=== PATIENT | male | born 1985 | race Caucasian/White ===

== ENCOUNTER 2019-11-03 02:04 | Emergency (ER) | payer OTHER ==
[~2019-11-03] VITALS: Ht 175.3 cm; Wt 102.3 kg
[2019-11-03] MEDS ORDERED: FAMO20TA PO (02:09)
[2019-11-03] MEDS ORDERED: GI COCKTAIL 50ML BTL(HYOSCYAMINE/MAALOX/LIDOCAINE VISCOUS)(1:3:1) As Ordered ONE (03:06)
[2019-11-03] MEDS ORDERED: GI COCKTAIL 50ML BTL(HYOSCYAMINE/MAALOX/LIDOCAINE VISCOUS)(1:3:1) PO ONE (03:15)
[2019-11-03 03:24] LABS: BASO # 0.1 10^3/uL (0.0-0.2); BASO % 0.6 % (0.0-1.0); EOS # 0.1 10^3/uL (0.0-0.5); EOS % 0.6 % (0.0-3.0); HEMATOCRIT 45.5 % (42.0-52.0); HEMOGLOBIN 13.7 g/dl (13.5-17.5); LYMPH # 2.5 10^3/uL (1.5-5.0); LYMPH % 19.7 % (24.0-44.0); MEAN CORPUSCULAR HEMOGLOBIN 20.4 pg (27.0-33.0); MEAN CORPUSCULAR HGB CONC 30.1 g/dl (32.0-36.5); MEAN CORPUSCULAR VOLUME 67.7 fl (80.0-96.0); MONO # 0.4 10^3/uL (0.0-0.8); MONO % 3.3 % (0.0-5.0); NEUTROPHILS # 9.3 10^3/uL (1.5-8.5); NEUTROPHILS % 74.1 % (36.0-66.0); PLATELET COUNT, AUTOMATED 330 10^3/uL (150-450); RED BLOOD COUNT 6.72 10^6/uL (4.30-6.10); WHITE BLOOD COUNT 12.5 10^3/uL (4.0-10.0)
[2019-11-03 03:41] LABS: ALBUMIN 4.1 GM/DL (3.2-5.2); ALT/SGPT 83 U/L (12-78); BILIRUBIN,DIRECT 0.1 MG/DL (0.0-0.2); BILIRUBIN,TOTAL 0.3 MG/DL (0.2-1.0); BLOOD UREA NITROGEN 13 MG/DL (7-18); CALCIUM LEVEL 9.4 MG/DL (8.5-10.1); CARBON DIOXIDE LEVEL 28 MEQ/L (21-32); CHLORIDE LEVEL 106 MEQ/L (98-107); CREATININE FOR GFR 1.04 MG/DL (0.70-1.30); GLOMERULAR FILTRATION RATE > 60.0 (>60); GLUCOSE, FASTING 142 MG/DL (70-100); LIPASE 71 U/L (73-393); POTASSIUM SERUM 4.1 MEQ/L (3.5-5.1); SODIUM LEVEL 139 MEQ/L (136-145); TOTAL PROTEIN 8.2 GM/DL (6.4-8.2)
--- NOTE | 2019-11-03 04:12 | REPVR ---
PROCEDURE INFORMATION: Exam: XR Chest, 1 View Exam date and time: 11/03/2019 3:49 AM Age: 34 years old Clinical indication: Chest pain; Type not specified TECHNIQUE: Imaging protocol: XR of the chest Views: 1 view. COMPARISON: No relevant prior studies available. FINDINGS: Lungs: Unremarkable. No consolidation. Pleural space: Unremarkable. No pleural effusion. No pneumothorax. Heart/Mediastinum: Unremarkable. No cardiomegaly. Bones/joints: Unremarkable. IMPRESSION: No acute findings. Electronically signed by: Hood Mendez On 11/03/2019 04:11:50 AM
[2019-11-03] MEDS ORDERED: KETOROLAC 30 MG/ML 1ML VIAL IV ONE (04:15)
[2019-11-03] MEDS ORDERED: ISOVUE-370 76% 100ML VIAL As Ordered ONE (05:40)
--- NOTE | 2019-11-03 06:25 | REPVR ---
PROCEDURE INFORMATION: Exam: CT Angiography Chest With Contrast Exam date and time: 11/03/2019 6:01 AM Age: 34 years old Clinical indication: Chest pain; Additional info: Abdominal and chest pain TECHNIQUE: Imaging protocol: Computed tomographic angiography of the chest with intravenous contrast. 3D rendering (Not supervised by radiologist): MIP and/or 3D reconstructed images were created by the technologist. Radiation optimization: All CT scans at this facility use at least one of these dose optimization techniques: automated exposure control; mA and/or kV adjustment per patient size (includes targeted exams where dose is matched to clinical indication); or iterative reconstruction. Contrast material: ISO 370; Contrast volume: 100 ml; Contrast route: INTRAVENOUS (IV); COMPARISON: CR PORTABLE CHEST X-RAY 11/03/2019 3:40 AM FINDINGS: Limitations: Examination is limited by motion artifact. Pulmonary arteries: No definite pulmonary embolism. Evaluation of the segmental pulmonary arteries are limited because of motion. Aorta: Unremarkable. No aortic aneurysm. No aortic dissection. Veins: Right SVC is patent. Incidental persistent left SVC. Tracheobronchial tree: Visualized airway is unremarkable. Lungs: Unremarkable. No consolidation. No masses. Pleural space: Unremarkable. No pneumothorax. No pleural effusion. Heart: Unremarkable. No cardiomegaly. No pericardial effusion. Lymph nodes: Unremarkable. No enlarged lymph nodes. Bones/joints: Unremarkable. No acute fracture. Soft tissues: Unremarkable. IMPRESSION: 1. No definite pulmonary embolism. 2. Evaluation of the segmental pulmonary arteries are limited because of motion. 3. See also CT abdomen pelvis report. Electronically signed by: Peri Carrington On 11/03/2019 06:25:21 AM
--- NOTE | 2019-11-03 06:25 | REPVR ---
PROCEDURE INFORMATION: Exam: CT Abdomen And Pelvis With Contrast Exam date and time: 11/03/2019 6:01 AM Age: 34 years old Clinical indication: Abdominal pain; Prior surgery; Additional info: Abdominal and chest pain TECHNIQUE: Imaging protocol: Computed tomography of the abdomen and pelvis with intravenous contrast. Radiation optimization: All CT scans at this facility use at least one of these dose optimization techniques: automated exposure control; mA and/or kV adjustment per patient size (includes targeted exams where dose is matched to clinical indication); or iterative reconstruction. Contrast material: ISO 370; Contrast volume: 100 ml; Contrast route: INTRAVENOUS (IV); COMPARISON: No relevant prior studies available. FINDINGS: Liver: Normal. No mass. Gallbladder and bile ducts: 1.5 cm gallstone in the gallbladder. Mild pericholecystic edema. Gallbladder is distended. No biliary ductal dilatation. Pancreas: Normal. No ductal dilation. Spleen: Normal. No splenomegaly. Adrenals: Normal. No mass. Kidneys and ureters: Normal. No hydronephrosis. Stomach and bowel: No abnormal bowel dilatation. No abnormal bowel wall thickening. Negative for colonic diverticulitis. Appendix: Appendix is normal. Intraperitoneal space: Unremarkable. No free air. No significant fluid collection. Vasculature: Unremarkable. No abdominal aortic aneurysm. Lymph nodes: Unremarkable. No enlarged lymph nodes. Bladder: Unremarkable as visualized. Reproductive: Prostate is normal in size. Bones/joints: Unremarkable. No acute fracture. Soft tissues: Unremarkable. IMPRESSION: Cholelithiasis. Suspicious for acute cholecystitis. Electronically signed by: Peri Carrington On 11/03/2019 06:24:54 AM
--- NOTE | 2019-11-03 06:51 | REPVR ---
PROCEDURE INFORMATION: Exam: US Abdomen, Limited; Right Upper Quadrant Exam date and time: 11/03/2019 6:41 AM Age: 34 years old Clinical indication: Abdominal pain; Acute; Additional info: Abdominal pain/ gallstone TECHNIQUE: Imaging protocol: US abdomen. Real time ultrasound with image documentation. Limited exam focused on the right upper quadrant. COMPARISON: CT ABD/PEL W/IV CONTRAST ONLY 11/03/2019 5:46 AM FINDINGS: Liver: Normal. No masses. Gallbladder: Diffuse gallbladder wall thickening. Gallbladder wall measures 4 mm in thickness. Stone in the gallbladder neck measuring 1.8 cm. Ring down artifact from the anterior wall of the gallbladder consistent with adenomyomatosis. Common bile duct: CBD measures 4 mm in diameter. Pancreas: Visualized pancreas is unremarkable. Right kidney: Right kidney measures 11.1 cm in length. No right hydronephrosis. Normal echogenicity. IMPRESSION: 1. Cholelithiasis and gallbladder wall thickening. Findings consistent with acute cholecystitis. 2. Ring down artifact from the anterior wall of the gallbladder consistent with adenomyomatosis. Electronically signed by: Peri Carrington On 11/03/2019 06:51:26 AM
[2019-11-03] MEDS ORDERED: ONDA4TAB6 PO (07:15)
[2019-11-03] MEDS ORDERED: AUGM875T28 PO (07:15)
[2019-11-03] MEDS ORDERED: KETO10TAB PO (07:15)
[2019-11-03] MEDS ORDERED: AUGMENTIN 875 MG TAB PO ONE (07:30)
[2019-11-03 07:32] VITALS: BP 113/83
--- NOTE | 2019-11-13 14:26 | ECGEPIP ---
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 BRUGADA SYNDROME CLINICAL CORRELATE SEE SCANNED DOWNTIME REPORT.
--- NOTE | 2019-11-13 14:27 | ECGEPIP ---
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 BRUGADA SYNDROME CLINICAL CORRELATE SEE SCANNED DOWNTIME REPORT
== END 2019-11-03 07:34 | disposition home or self-care (01) ==
LOC: M ED 02:04
DX: K81.9 Cholecystitis, unspecified (principal); Z79.899 Other long term (current) drug therapy
CPT/HCPCS: 71045; 71275; 74177; 76705; 80048; 80076; 81001; 83690; 85025; 93005; 93041; 94760; 96374; 99284; J1885; Q9967

== ENCOUNTER 2020-01-12 04:40 | Emergency (ER) | payer OTHER ==
[~2020-01-12] VITALS: Ht 175.3 cm; Wt 106.1 kg
[~2020-01-12 04:40] MED LIST: AUGM875T28 PO; FAMO20TA PO; KETO10TAB PO; ONDA4TAB6 PO
[2020-01-12] MEDS ORDERED: GI COCKTAIL 50ML BTL(HYOSCYAMINE/MAALOX/LIDOCAINE VISCOUS)(1:3:1) PO ONE (05:30)
--- NOTE | 2020-01-12 05:41 | REPVR ---
PROCEDURE INFORMATION: Exam: XR Chest, 1 View Exam date and time: 01/12/2020 5:16 AM Age: 34 years old Clinical indication: Chest pain; Type not specified TECHNIQUE: Imaging protocol: XR of the chest Views: 1 view. COMPARISON: CR PORTABLE CHEST X-RAY 2019-11-03 03:40 FINDINGS: Lungs: Unremarkable. No consolidation. Pleural space: Unremarkable. No pleural effusion. No pneumothorax. Heart/Mediastinum: Unremarkable. No cardiomegaly. Bones/joints: Unremarkable. IMPRESSION: No acute findings. Electronically signed by: Jared Suarez On 01/12/2020 05:41:43 AM
[2020-01-12 05:49] LABS: BASO # 0.1 10^3/uL (0.0-0.2); BASO % 0.7 % (0.0-1.0); EOS % 0.2 % (0.0-3.0); HEMATOCRIT 47.6 % (42.0-52.0); LYMPH # 1.4 10^3/uL (1.5-5.0); LYMPH % 11.4 % (24.0-44.0); MEAN CORPUSCULAR HEMOGLOBIN 20.1 pg (27.0-33.0); MEAN CORPUSCULAR HGB CONC 29.4 g/dl (32.0-36.5); MEAN CORPUSCULAR VOLUME 68.4 fl (80.0-96.0); MONO # 0.4 10^3/uL (0.0-0.8); MONO % 3.1 % (0.0-5.0); NEUTROPHILS # 10.3 10^3/uL (1.5-8.5); NEUTROPHILS % 83.9 % (36.0-66.0); PLATELET COUNT, AUTOMATED 319 10^3/uL (150-450); RED BLOOD COUNT 6.96 10^6/uL (4.30-6.10); WHITE BLOOD COUNT 12.3 10^3/uL (4.0-10.0)
[2020-01-12 06:13] LABS: BLOOD UREA NITROGEN 18 MG/DL (7-18); CALCIUM LEVEL 9.3 MG/DL (8.5-10.1); CARBON DIOXIDE LEVEL 27 MEQ/L (21-32); CHLORIDE LEVEL 106 MEQ/L (98-107); CK-MB VALUE MASS 1.5 NG/ML (<3.6); CPK CREATINE PHOSPHOKINASE 129 U/L (39-308); GLOMERULAR FILTRATION RATE > 60.0 (>60); GLUCOSE, FASTING 156 MG/DL (70-100); MB/CK RELATIVE INDEX 1.16 (< OR =4); POTASSIUM SERUM 4.4 MEQ/L (3.5-5.1); SODIUM LEVEL 137 MEQ/L (136-145); TROPONIN I < 0.02 NG/ML (< 0.10)
--- NOTE | 2020-01-12 06:20 | ECGEPIP ---
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
[2020-01-12] MEDS ORDERED: ONDANSETRON 4MG/2ML VIAL IV ONE (06:30)
[2020-01-12] MEDS ORDERED: KETOROLAC 30 MG/ML 1ML VIAL IV ONE (06:30)
[2020-01-12 06:46] LABS: ALBUMIN 4.3 GM/DL (3.2-5.2); ALT/SGPT 57 U/L (12-78); BILIRUBIN,DIRECT < 0.1 MG/DL (0.0-0.2); BILIRUBIN,TOTAL 0.3 MG/DL (0.2-1.0); LIPASE 84 U/L (73-393); TOTAL PROTEIN 7.9 GM/DL (6.4-8.2)
--- NOTE | 2020-01-12 06:55 | REPVR ---
PROCEDURE INFORMATION: Exam: US Abdomen, Limited; Right Upper Quadrant Exam date and time: 01/12/2020 6:43 AM Age: 34 years old Clinical indication: Abdominal pain; Epigastric; Additional info: Dyspespia, HX of gallstones TECHNIQUE: Imaging protocol: US abdomen. Real time ultrasound with image documentation. Limited exam focused on the right upper quadrant. COMPARISON: GALLBLADDER US 2019-11-03 06:26 FINDINGS: Liver: Questionable mild hepatic steatosis normal 10.7 cm right kidney. Gallbladder: 5 mm thick gallbladder wall with positive sonographic Bush sign, echogenic stones and non mobile stones and sludge. Evidence for acute cholecystitis. There is some ring down artifact in the gallbladder, question cholesterolosis or adenomyomatosis. Common bile duct: Normal. No stones. No dilation. Pancreas: Visualized pancreas is unremarkable. Right kidney: Normal. No mass. No hydronephrosis. IMPRESSION: 1. 5 mm thick gallbladder wall with positive sonographic Bush sign, echogenic stones and non mobile stones and sludge. Evidence for acute cholecystitis. 2. Ring down artifact in the gallbladder, question cholesterolosis or adenomyomatosis. Electronically signed by: Jared Suarez On 01/12/2020 06:55:16 AM
[2020-01-12] MEDS ORDERED: MORPHINE 4 MG/ML 1ML VIAL/SYRINGE (J2270) IV PRN (07:45)
[2020-01-12] MEDS ORDERED: AUGM875T28 PO (08:57)
[2020-01-12] MEDS ORDERED: ZOFR4TAB16 PO (08:57)
[2020-01-12] MEDS ORDERED: AUGMENTIN 875 MG TAB PO ONE (09:00)
[2020-01-12] MEDS ORDERED: KETO10TAB PO (09:02)
[2020-01-12 09:26] VITALS: BP 120/83
--- NOTE | 2020-01-12 14:02 | ER ---
DATE OF CONSULTATION: 01/12/2020 REASON FOR CONSULTATION: Abdominal pain. HISTORY OF PRESENT ILLNESS: The patient is a 34-year-old male who has had a history of cholecystitis in the past. He was told if he ever had it again, he would need surgery. Because of that, he never followed up with any surgeons or anything after his first ER visit that was just over a month ago. He now presents with similar symptoms starting last evening. He claims to have had a burrito followed by some orange juice and started having severe abdominal pains around midnight with nausea. No emesis. No fevers or chills. No changes in bowel movements just the right upper quadrant pain and nausea. This got progressively worse and was not going away, so he came in the emergency room again in the middle of the night to have this evaluated. Labs were essentially normal. White count was just slightly elevated at 12.3. Otherwise, LFTs were within normal range. Vitals were all stable. Ultrasound of the gallbladder did show thickened wall with stones and positive sonographic Bancroft sign. Because of that, I was called to evaluate him this morning. When I went to visit him, his pain was almost completely gone. The nausea and vomiting had resolved. He was calm, comfortable, and said he was okay to go home. I gave him the option of immediate surgery versus outpatient antibiotics and doing this surgery in a couple of weeks once the inflammation subsides. He is comfortable with going home. PAST MEDICAL HISTORY: He claims to have some [facility], but he is not under any treatment for that. No other complaints. PAST SURGICAL HISTORY: Right arm surgery. ALLERGIES: None. MEDICATIONS: None. SOCIAL HISTORY: Denies drug, alcohol, or tobacco abuse. FAMILY HISTORY: Non-contributory. REVIEW OF SYSTEMS: Pertinent positives and negatives as stated in the HPI. PHYSICAL EXAMINATION: GENERAL: Alert and oriented x3, in no acute distress. VITAL SIGNS: Temperature 97.6, pulse 90, respirations 14, blood pressure 125/90, pulse ox 98% on room air. HEENT: Pupils equally round, reactive to light, and accommodation. HEART: S1, S2. Regular rate and rhythm. LUNGS: Clear to auscultation bilaterally. ABDOMEN: Soft, nontender, and nondistended. No ventral hernias. EXTREMITIES: No clubbing, cyanosis, or edema. LABORATORY DATA: White count 12.3, hemoglobin 14, platelets 319,000. Potassium 4.4, creatinine 1.1, total bilirubin 0.3, direct 0.1, AST 26, ALT 57, alkaline phosphatase 85. IMAGING: Ultrasound of the gallbladder shows the gallbladder wall 5 mm thick with positive sonographic Bancroft sign, positive stones, and sludge. ASSESSMENT AND PLAN: The patient is a 34-year-old male with acute calculus cholecystitis. Recommendation at this time is one weeks worth of Augmentin, low-fat and low-calorie diet, and he can follow-up with me in the office next week. We will schedule him for outpatient surgery at that time. LESIA
== END 2020-01-12 09:29 | disposition home or self-care (01) ==
LOC: M ED 04:40
DX: K81.0 Acute cholecystitis (principal); K21.9 Gastro-esophageal reflux disease without esophagitis
CPT/HCPCS: 71045; 76705; 80048; 80076; 82550; 82553; 83690; 85025; 93005; 93041; 94760; 96374; 96375; 99285; J1885; J2270; J2405

== ENCOUNTER → 2020-02-22 | Outpatient (CLI) | payer OTHER ==
[~2020-02-22] MED LIST changes: +ZOFR4TAB16 PO
== END ==
LOC: M LABSMTC 08:32
PROVIDERS: ATTEND Anesthesiology
DX: Z01.812 Encounter for preprocedural laboratory examination (principal); Z20.828 Contact with and (suspected) exposure to other viral communicable diseases

== ENCOUNTER 2020-02-27 06:08 | Day surgery (SDC) | payer OTHER ==
[~2020-02-27] VITALS: Ht 175.3 cm; Wt 105.3 kg
[2020-02-27] MEDS ORDERED: BUPIVACAINE/EPIN 0.5% 30 ML VIAL As Ordered ONE (07:16)
[2020-02-27] MEDS ORDERED: KETOROLAC 60MG 2ML VIAL As Ordered ONE (07:47)
[2020-02-27] MEDS ORDERED: ROCURONIUM BROMIDE 50 MG/5 ML VIAL As Ordered ONE (07:47)
[2020-02-27] MEDS ORDERED: ACETAMINOPHEN 1000MG 100ML IV BTL (OFIRMEV) (J0131 PER 10MG) As Ordered ONE (07:47)
[2020-02-27] MEDS ORDERED: fentaNYL 250 MCG/5 ML INJECTION (J3010) As Ordered ONE (07:47)
[2020-02-27] MEDS ORDERED: SUGAMMADEX SODIUM 500 MG/5 ML VIAL (BRIDION) As Ordered ONE (07:47)
[2020-02-27] MEDS ORDERED: LIDOCAINE 2% 100MG/5ML SDV (FOR ANES.) As Ordered ONE (07:47)
[2020-02-27] MEDS ORDERED: dexameTHASONE 4 MG/ML 1ML VIAL (J1100 PER 1MG) As Ordered ONE (07:47)
[2020-02-27] MEDS ORDERED: ONDANSETRON 4MG/2ML VIAL As Ordered ONE (07:47)
[2020-02-27] MEDS ORDERED: propofoL 200 MG/20 ML VIAL As Ordered ONE (07:47)
[2020-02-27] MEDS ORDERED: MIDAZOLAM INJ 2MG/2ML VIAL (J2250 PER 1MG) As Ordered ONE (07:47)
[2020-02-27] MEDS ORDERED: LR 1,000 ML IV SCH (09:30)
[2020-02-27] MEDS ORDERED: oxyCODONE 5MG TAB PO PRN (09:30)
[2020-02-27] MEDS ORDERED: fentaNYL 100 MCG/2 ML INJECTION (J3010) IV PRN (09:30)
[2020-02-27] MEDS ORDERED: ONDANSETRON 4MG/2ML VIAL IV PRN (09:30)
[2020-02-27] MEDS ORDERED: NORCO, ANEXSIA 5/325MG TABLET (HYDROcodone/ACETAMINOPHEN) PO PRN (09:30)
--- NOTE | 2020-02-27 11:22 | RO ---
OPERATIVE NOTE DATE OF OPERATION: 02/27/2020 PROCEDURE: Robotic cholecystectomy. SURGEON: Tone Aponte DO BEATER BOSS: Citlali Quinonez ANESTHESIA: General. ESTIMATED BLOOD LOSS: 5. COMPLICATIONS: None. INDICATIONS FOR PROCEDURE: The patient is a 34-year-old male who presents with cholelithiasis in the Emergency Room. Recommendation was to proceed with a robotic cholecystectomy. Risks and benefits of the procedure not limited to but including bleeding, infection, hernia formation, damage to surrounding structures and need for further surgery were discussed in detail with the patient. Informed consent was obtained and procedure was planned. DESCRIPTION OF PROCEDURE: The patient was brought back to operating room 7. After sufficient sedation, the abdomen was sterilely prepped and draped. Next, time-out was done to confirm proper patient and proper procedure. Following that, an 8 mm incision was made in the left upper quadrant and the Veress needle was inserted. The abdomen was insufflated to 15 mmHg. Veress needle was then removed. An 8 mm Optiview port was used to gain access to the abdomen. Once the abdomen was entered, three more ports were placed across the mid abdomen, one in the right upper quadrant. The fundus of the gallbladder was then elevated up towards the right shoulder. The cystic duct to cystic artery were carefully dissected free using a combination of blunt and sharp dissection. Once they were both doubly clipped and cut, the gallbladder was dissected free from the gallbladder fossa. The gallbladder was very large and inflamed but it was removed without any perforation, placed inside of a 5-mm Endo Catch bag and brought out through the right lateral port site. Once the gallbladder was removed, the fascia at the right lateral port site was closed using a running 2-0 V-Loc suture. Once that was completed, the abdomen was desufflated. Skin incisions were closed with 4-0 Vicryl subcuticular sutures. The abdomen was cleaned and dried. Steri-Strips, 4x4 and tape were applied.
[2020-02-27 11:26] VITALS: BP 133/82
== END 2020-02-27 11:45 | disposition home or self-care (01) ==
LOC: M SDC 06:08
PROVIDERS: ATTEND Surgery
DX: K80.10 Calculus of gallbladder with chronic cholecystitis without obstruction (principal); F43.10 Post-traumatic stress disorder, unspecified; K21.9 Gastro-esophageal reflux disease without esophagitis
CPT/HCPCS: 47562; 88304; J0131; J1100; J1885; J2250; J2405; J3010; S2900

== ENCOUNTER → 2022-04-20 | Outpatient (REF) | payer OTHER | LOC: M SFHCDERM 17:18 | PROVIDERS: ATTEND Nurse Practitioner Family | DX: D22.9 Melanocytic nevi, unspecified (principal) ==